=== PATIENT | male | born 1950 | race Two or more races ===

== ENCOUNTER 2020-04-20 13:09 | Emergency (ER) | payer MEDICARE, OTHER ==
[~2020-04-20] VITALS: Ht 190.5 cm; Wt 117.9 kg
[2020-04-20 13:40] VITALS: BP 193/65
--- NOTE | 2020-04-20 13:40 | NUR ---
ED Nurse Note:pt. came from home with SOB, asthma exacerbation, VSS, placed on diagnostic cardiac sonographer, pt. is A/Ox4 ambulatory, 93% O2sats on R/A
--- NOTE | 2020-04-20 14:09 | NUR ---
ED Nurse Note:blood and urine sent tro labs, given IV meds
[2020-04-20 14:21] LABS: HEMATOCRIT 45.5 % (42.0-52.0); HEMOGLOBIN 15.4 G/DL (14.2-18.0); MEAN CORPUSCULAR VOLUME 92 FL (80-99); PLATELET COUNT 274 K/UL (150-450); RED BLOOD COUNT 4.95 M/UL (4.70-6.10); RED CELL DISTRIBUTION WIDTH 12.5 % (11.6-14.8)
[2020-04-20 14:36] LABS: ANION GAP 5 mmol/L (5-15); BLOOD UREA NITROGEN 11 mg/dL (7-18); CALCIUM 8.6 MG/DL (8.5-10.1); CARBON DIOXIDE 28 MMOL/L (21-32); CHLORIDE 88 MMOL/L (98-107); CREATININE 0.7 MG/DL (0.55-1.30); POTASSIUM 4.3 MMOL/L (3.5-5.1); SODIUM 121 MMOL/L (136-145)
[2020-04-20 14:46] LABS: INR 1.1 (0.9-1.1)
[2020-04-20 14:50] LABS: ALANINE AMINOTRANSFERASE 25 U/L (12-78); ALBUMIN 3.9 G/DL (3.4-5.0); ALKALINE PHOSPHATASE 76 U/L (46-116); ASPARTATE AMINO TRANSFERASE 23 U/L (15-37); BILIRUBIN,TOTAL 0.7 MG/DL (0.2-1.0); CKMB 9.2 NG/ML (0.0-3.6); CREATINE KINASE 453 U/L (26-308); FERRITIN 80 NG/ML (8-388); LACTATE DEHYDROGENASE 170 U/L (81-234)
[2020-04-20 15:13] LABS: APPEARANCE,URINE CLEAR; BILIRUBIN, URINE NEGATIVE (NEGATIVE); COLOR,URINE PALE YELLOW; GLUCOSE, URINE (UA) NEGATIVE (NEGATIVE); KETONES,URINE 1+ (NEGATIVE); LEUKOCYTE ESTERASE ,URINE NEGATIVE (NEGATIVE); NITRITE,URINE NEGATIVE (NEGATIVE); PH,URINE 8 (4.5-8.0); PROTEIN,URINE NEGATIVE (NEGATIVE); UROBILINOGEN,URINE NORMAL MG/DL (0.0-1.0)
[2020-04-20] MEDS: Albuterol/Ipratropium 3ml neb HHN ONE (15:53)
--- NOTE | 2020-04-20 16:03 | Diagnostic Imaging Report ---
Indication: Reason For Exam: SOB Technique: One view of the chest Comparison: none Findings: Round very well circumscribed nodular opacity in the left mid to lower lung probably represents a nipple shadow. Lungs and pleural spaces are otherwise clear. The heart is borderline enlarged. Impression: No acute process
[2020-04-20 16:30] VITALS: BP 154/67
--- NOTE | 2020-04-20 16:31 | Emergency Room Report ---
History of Present Illness General Chief Complaint: Dyspnea/Respdistress Source: Patient Present Illness HPI 70-year-old male with a history of asthma here with dyspnea. Patient says that he has been wheezing today. He had a negative Covid test yesterday. Denies fevers, chills, chest pain, palpitations, back pain, abdominal pain, nausea, vomiting, diarrhea, dysuria. Allergies: Coded Allergies: No Known Allergies (Unverified , 04/20/20) COVID-19 Screening Contact w/high risk pt: No Experienced COVID-19 symptoms?: Yes COVID-19 Testing performed CUSTOMER SERVICES MANAGER: No Nursing Documentation-[facility] Past Medical History: No History, Except For Hx Hypertension: Yes Hx Asthma: Yes Review of Systems All Other Systems: negative except mentioned in HPI Physical Exam Vital Signs Date Time Temp Pulse Resp B/P (MAP) Pulse Ox O2 Delivery O2 Flow Rate FiO2 04/20/20 13:22 98.8 102 18 193/65 (107) 90 Room Air 04/20/20 13:39 93 Sp02 EP Interpretation: reviewed, normal General Appearance: no apparent distress, alert, non-toxic Head: normocephalic, atraumatic Eyes: bilateral eye normal inspection, bilateral eye PERRL ENT: hearing grossly normal, normal pharynx, no angioedema, normal voice Neck: full range of motion, supple/symm/no masses Respiratory: chest non-tender, speaking full sentences, other - Expiratory wheezes bilaterally. Speaking full sentences without any respiratory distress or increased respiratory effort whatsoever Cardiovascular #1: regular rate, rhythm, no edema Cardiovascular #2: 2+ carotid (R), 2+ carotid (L), 2+ radial (R), 2+ radial (L), 2+ dorsalis pedis (R), 2+ dorsalis pedis (L) Gastrointestinal: normal bowel sounds, non tender, soft, non-distended, no guarding, no rebound Rectal: deferred Genitourinary: normal inspection, no CVA tenderness Musculoskeletal: back normal, normal range of motion, gait/station normal, non- tender Neurologic: alert, motor strength/tone normal, oriented x3, sensory intact, responsive, speech normal Psychiatric: judgement/insight normal, memory normal, mood/affect normal, no suicidal/homicidal ideation Lymphatic: no adenopathy Medical Decision Making Diagnostic Impression: Primary Impression: Dyspnea ER Course Laboratory Tests Test 04/20/20 13:50 04/20/20 14:40 White Blood Count 8.0 K/UL (4.8-10.8) Red Blood Count 4.95 M/UL (4.70-6.10) Hemoglobin 15.4 G/DL (14.2-18.0) Hematocrit 45.5 % (42.0-52.0) Mean Corpuscular Volume 92 FL (80-99) Mean Corpuscular Hemoglobin 31.2 PG (27.0-31.0) H Mean Corpuscular Hemoglobin Concent 34.0 G/DL (32.0-36.0) Red Cell Distribution Width 12.5 % (11.6-14.8) Platelet Count 274 K/UL (150-450) Mean Platelet Volume 6.0 FL (6.5-10.1) L Neutrophils (%) (Auto) % (45.0-75.0) Lymphocytes (%) (Auto) % (20.0-45.0) Monocytes (%) (Auto) % (1.0-10.0) Eosinophils (%) (Auto) % (0.0-3.0) Basophils (%) (Auto) % (0.0-2.0) Differential Total Cells Counted 100 Neutrophils % (Manual) 94 % (45-75) H Lymphocytes % (Manual) 3 % (20-45) L Monocytes % (Manual) 2 % (1-10) Eosinophils % (Manual) 1 % (0-3) Basophils % (Manual) 0 % (0-2) Band Neutrophils 0 % (0-8) Platelet Estimate Adequate Platelet Morphology Normal Red Blood Cell Morphology Normal Prothrombin Time 11.6 SEC (9.30-11.50) H Prothrombin Time INR 1.1 (0.9-1.1) Activated Partial Thromboplast Time 29 SEC (23-33) D-Dimer 0.30 mg/L FEU (0.00-0.49) Sodium Level 121 MMOL/L (136-145) L Potassium Level 4.3 MMOL/L (3.5-5.1) Chloride Level 88 MMOL/L (98-107) L Carbon Dioxide Level 28 MMOL/L (21-32) Anion Gap 5 mmol/L (5-15) Blood Urea Nitrogen 11 mg/dL (7-18) Creatinine 0.7 MG/DL (0.55-1.30) Estimated Glomerular Filtration Rate > 60 mL/min (>60) Glucose Level 127 MG/DL (74-106) H Lactic Acid Level 1.00 mmol/L (0.4-2.0) Calcium Level 8.6 MG/DL (8.5-10.1) Ferritin 80 NG/ML (8-388) Total Bilirubin 0.7 MG/DL (0.2-1.0) Aspartate Amino Transferase (AST) 23 U/L (15-37) Alanine Aminotransferase (ALT) 25 U/L (12-78) Alkaline Phosphatase 76 U/L (46-116) Lactate Dehydrogenase 170 U/L (81-234) Total Creatine Kinase 453 U/L (26-308) H Creatine Kinase MB 9.2 NG/ML (0.0-3.6) H Creatine Kinase MB Relative Index 2.0 Troponin I 0.001 ng/mL (0.000-0.056) C-Reactive Protein, Quantitative 1.6 mg/dL (0.00-0.90) H Pro-B-Type Natriuretic Peptide 94 pg/mL (0-125) Total Protein 7.7 G/DL (6.4-8.2) Albumin 3.9 G/DL (3.4-5.0) Globulin 3.8 g/dL Albumin/Globulin Ratio 1.0 (1.0-2.7) Lipase 161 U/L (73-393) Urine Color Pale yellow Urine Appearance Clear Urine pH 8 (4.5-8.0) Urine Specific Priddy 1.015 (1.005-1.035) Urine Protein Negative (NEGATIVE) Urine Glucose (UA) Negative (NEGATIVE) Urine Ketones 1+ (NEGATIVE) H Urine Blood Negative (NEGATIVE) Urine Nitrite Negative (NEGATIVE) Urine Bilirubin Negative (NEGATIVE) Urine Urobilinogen Normal MG/DL (0.0-1.0) Urine Leukocyte Esterase Negative (NEGATIVE) CXR: No infiltrate/effusion. Mediastinum within normal limits. No consolidations. No free air under the diaphragm. No bony abnormalities 70-year-old male here with dyspnea. Patient had normal oxygen saturation on room air and otherwise normal vital signs in the emergency department. Labs unremarkable. Chest x-ray normal. Patient was given an hour-long DuoNeb treatment with good resolution of his symptoms. He was given a dose of Decadron in the emergency department. Said that he has an albuterol inhaler at home. We will follow-up with primary care. Told to come to the emergency department with worsening symptoms. Discharged in stable condition. Of note patient did have a negative Covid test yesterday. Was told that he still may possibly have Covid at this time and to return to the emergency department if his symptoms worsen. Last Vital Signs Date Time Temp Pulse Resp B/P (MAP) Pulse Ox O2 Delivery O2 Flow Rate FiO2 04/20/20 15:40 101 19 96 Room Air 21 96 23 94 04/20/20 13:40 98.8 193/65 Disposition: HOME, SELF-CARE Condition: Stable Referrals: [facility],REFERRING (PCP) [facility] Patient Instructions: Shortness of Breath Art Paul M.D. Apr 20, 2020 16:31
[2020-04-20 16:40] VITALS: BP 154/67
--- NOTE | 2020-04-20 16:40 | NUR ---
ER DISCHARGE NOTE: Patient is cleared to be discharged per ERMD, pt is aox4, on room air, with stable vital signs. pt was given dc and prescription instructions, pt was able to verbalize understanding, pt id band and iv site removed without complications. pt is able to ambulate with steady gait. pt took all belongings.
== END 2020-04-20 16:47 | disposition home or self-care (01) ==
LOC: EMR 13:49
DX: R06.00 Dyspnea, unspecified (principal); J45.909 Unspecified asthma, uncomplicated; I10 Essential (primary) hypertension
CPT/HCPCS: 36415; 71045; 80053; 81003; 82550; 82553; 82728; 83605; 83615; 83690; 83880; 84484; 85007; 85025; 85379; 85610; 85730; 86140; 87040; 93005; 94640; 96374; 99284; J1100; J7620